=== PATIENT | male | born 1945 | race Caucasian/White ===

== ENCOUNTER 2024-09-02 09:21 | Outpatient (OUT) | payer MEDICARE, SELFPAY ==
[2024-09-04 07:07] LABS: QuantiFERON-TB Gold Plus Negative (Negative)
== END 2024-09-02 09:22 | disposition home or self-care (01) ==
PROVIDERS: PCP Family Medicine; Visit Provider Internal Medicine
DX: R91.8 Other nonspecific abnormal finding of lung field (principal)
CPT/HCPCS: 36415; 86480